=== PATIENT | male | born 1955 | race Asian ===

== ENCOUNTER 2017-03-17 19:09 | Emergency (ER) | payer SELFPAY ==
[2017-03-17] MEDS ORDERED: Adacel (T-DAP) 0.5 ML VIAL ONE (19:27)
== END 2017-03-17 20:12 | disposition home or self-care (01) ==
LOC: NAV ERS 19:09
DX: S61.210A Laceration without foreign body of right index finger without damage to nail, initial encounter (principal); W26.9XXA Contact with unspecified sharp object(s), initial encounter
CPT/HCPCS: 12002; 90471; 90715

== ENCOUNTER 2017-03-27 10:43 | Emergency (ER) | payer SELFPAY ==
[2017-03-27] MEDS ORDERED: Ibuprofen 800 MG TAB ONE (11:27)
[2017-03-27] MEDS ORDERED: Sulfameth/Trimethoprim DS 800-160mg TAB ONE (11:27)
== END 2017-03-27 11:37 | disposition home or self-care (01) ==
LOC: NAV ERS 10:43
DX: S61.210D Laceration without foreign body of right index finger without damage to nail, subsequent encounter (principal); L03.011 Cellulitis of right finger; Z79.2 Long term (current) use of antibiotics; X58.XXXD Exposure to other specified factors, subsequent encounter
CPT/HCPCS: 99282